=== PATIENT | female | born 1955 | race Caucasian/White ===

== ENCOUNTER 2017-09-02 10:11 | Inpatient (IN) | payer BC ==
[2017-09-02] MEDS ORDERED: FLU Vacc QS 2017-18 (36mos UP)/PF 60 MCG/0.5 ML Syringe IM ONE (11:00)
[2017-09-02] MEDS ORDERED: Temazepam 15 MG Cap PO PRN (11:08)
[2017-09-02] MEDS ORDERED: Acetaminophen 325 MG Tab PO PRN (11:08)
[2017-09-02] MEDS ORDERED: Docusate Sodium 100 MG Cap PO PRN (11:08)
[2017-09-02] MEDS ORDERED: Ondansetron 4 MG/2 ML SDV IV PRN (11:08)
[2017-09-02] MEDS ORDERED: Sodium Chloride 0.9% 10 ML Syringe FLUSH PRN (11:08)
[2017-09-02] MEDS ORDERED: Morphine 2 MG/ML Syringe IVPUSH PRN (11:08)
[2017-09-02] MEDS ORDERED: Polyethylene Glycol 3350 Powder 17 GM Packet PO PRN (11:08)
[2017-09-02] MEDS ORDERED: LOTEPREDNOL ETABONATE EYEBOTH PRN (11:20)
[2017-09-02] MEDS ORDERED: KETOTIFEN FUMARATE EYEBOTH PRN (11:20)
[2017-09-02] MEDS ORDERED: Calcium Carbonate 500 MG Tab.Chew PO PRN (11:22)
[2017-09-02] MEDS ORDERED: Fluconazole 100 MG Tab PO ONE (11:30)
[2017-09-02] MEDS: Levofloxacin/Dextrose 5%-Water 500 MG in Premix Bag 1 BAG IV SCH (11:49)
[2017-09-02 12:27] LABS: CHLORIDE,CL 108 mEq/L (98-106); SODIUM,NA 143 mEq/L (136-145)
[2017-09-03] MEDS: Levofloxacin/Dextrose 5%-Water 500 MG in Premix Bag 1 BAG IV SCH (07:58)
[2017-09-03] MEDS: Cholecalciferol (Vitamin D3) 1,000 Unit Tab PO SCH (07:59)
[2017-09-03] MEDS: Multivitamin Tab PO SCH (07:59)
[2017-09-03] MEDS: Calcium Carbonate/Vitamin D3 1250 MG-200 Unit Tab PO SCH (07:59)
--- NOTE | 2017-09-03 08:36 | PCM.PN ---
- General Info Date of Service: 09/03/17 Admission Dx/Problem (Free Text): Patient was admitted yesterday for an infection in her right cheek. She is on IV antibiotics, has a history of srojens syndrome. Functional Status: Reports: Pain Controlled, Tolerating Diet, Ambulating, Urinating. Denies: New Symptoms - Review of Systems General: Reports: No Symptoms HEENT: Reports: Post Nasal Drip, Sinus Congestion, Rhinitis Pulmonary: Reports: Cough, Sputum. Denies: Shortness of Breath, Wheezing Cardiovascular: Denies: Chest Pain, Palpitations, Dyspnea on Exertion Gastrointestinal: Reports: No Symptoms Genitourinary: Reports: No Symptoms Musculoskeletal: Reports: No Symptoms Skin: Reports: No Symptoms Neurological: Reports: No Symptoms Psychiatric: Reports: No Symptoms - Patient Data Vitals - Most Recent: Last Vital Signs Temp 36.2 C 09/03/17 08:00 Pulse 64 09/03/17 08:00 Resp 20 09/03/17 08:00 BP 132/54 L 09/03/17 08:00 Pulse Ox 99 09/03/17 08:00 Weight - Most Recent: 52.6 kg Lab Results Last 24 Hours: Laboratory Results - last 24 hr 09/02/17 09/02/17 Range/Units 11:08 11:08 WBC 7.9 (5.0-10.0) 10^3/uL RBC 4.53 (4.00-5.50) 10^6/uL Hgb 13.1 (12.0-16.0) g/dL Hct 40.3 (37.0-47.0) % MCV 89.0 (82.0-94.0) fL MCH 28.9 (27.0-32.0) pg MCHC 32.5 L (33.0-38.0) g/dL RDW Coeff of Karely 13.9 (11.0-15.0) % Plt Count 185 (150-400) 10^3/uL Neut % (Auto) 76.8 (35-85) % Lymph % (Auto) 14.7 (10-55) % Grant % (Auto) 6.0 (0-16) % Eos % (Auto) 2.2 (0-5) % Baso % (Auto) 0.3 (0-3) % Neut # (Auto) 6.07 (1.80-7.00) 10^3/uL Lymph # (Auto) 1.16 (1.00-4.80) 10^3/uL Grant # (Auto) 0.47 (0.00-0.80) 10^3/uL Eos # (Auto) 0.17 (0.00-0.45) 10^3/uL Baso # (Auto) 0.02 10^3/uL Sodium 143 (136-145) mEq/L Potassium 4.2 (3.5-5.0) mEq/L Chloride 108 H (98-106) mEq/L Carbon Dioxide 26 (21-32) mmol/L BUN 9 (7-18) mg/dL Creatinine 0.7 (0.6-1.0) mg/dL Est Cr Clr Drug Dosing 68.31 mL/min Estimated GFR (MDRD) > 60 (>=60) mL/min Glucose 92 (75-99) mg/dL Calcium 8.9 (8.4-10.1) mg/dL C-Reactive Protein 0.7 (0.2-0.8) mg/dL Servando Results Last 24 Hours: Microbiology 09/02/17 11:23 Wet Prep - Final Vagina Med Orders - Current: Current Medications Acetaminophen (Tylenol) 650 mg PO Q4H PRN PRN Reason: Pain (Mild 1-3)/fever Calcium Carbonate (Calcium Carbonate/Vitamin D 1250 Mg-200 Unit) 1 tab PO DAILY [facility] Last Admin: 09/03/17 07:59 Dose: 1 tab Calcium Carbonate/Glycine (Tums) 500 mg PO QID PRN PRN Reason: Dyspepsia Cholecalciferol (Vitamin D3) 1,000 units PO DAILY [facility] Last Admin: 09/03/17 07:59 Dose: 1,000 units Docusate Sodium (Colace) 100 mg PO BID PRN PRN Reason: Constipation Fluconazole (Diflucan) 150 mg PO ONETIME ONE Stop: 09/05/17 08:01 Levofloxacin/Dextrose 500 mg/ (Premix) 100 mls @ 100 mls/hr IV Q24H [facility] Last Admin: 09/03/17 07:58 Dose: 100 mls/hr Vancomycin HCl 750 mg/ Sodium (Chloride) 250 mls @ 166.667 mls/hr IV Q24H [facility] Last Admin: 09/02/17 14:36 Dose: 166.667 mls/hr Magnesium Oxide (Magnesium Oxide) 250 mg PO DAILY [facility] Last Admin: 09/03/17 07:59 Dose: 250 mg Morphine Sulfate (Morphine) 2 mg IVPUSH Q2H PRN PRN Reason: Pain (severe 7-10) Multivitamins/Minerals/Vitamin C (Tab-A-Irineo) 1 tab PO DAILY [facility] Last Admin: 09/03/17 07:59 Dose: 1 tab Ptom(Ketotifen Fumarate [Zaditor] 1 Drop) 1 drop EYEBOTH BID PRN PRN Reason: Allergies Ptom(Loteprednol Etabonate [Lotemax] 1 Drop) 1 drop EYEBOTH QID PRN PRN Reason: Allergies Ondansetron HCl (Zofran) 4 mg IV Q6H PRN PRN Reason: Nausea/Vomiting Polyethylene Glycol (Miralax) 17 gm PO DAILY PRN PRN Reason: Constipation Sodium Chloride (Saline Flush) 10 ml FLUSH ASDIRECTED PRN PRN Reason: Keep Vein Open Temazepam (Restoril) 15 mg PO BEDTIME PRN PRN Reason: Sleep Vancomycin HCl (Pharmacy To Dose - Vancomycin) 1 dose .XX ASDIRECTED [facility] Discontinued Medications Fluconazole (Diflucan) 150 mg PO ONETIME ONE Stop: 09/02/17 11:31 Last Admin: 09/02/17 11:51 Dose: 150 mg Influenza Virus Vaccine (Fluzone Quad [id number]) 60 mcg IM .ONCE ONE Stop: 09/02/17 11:01 Last Admin: 09/02/17 11:54 Dose: 60 mcg - Exam General: Alert, Oriented HEENT: Pupils Equal, Pupils Reactive, EOMI, Other (mild tenderness over area of ropy nodularity tragus area anterior to right ear. Oral mucous membranes with much less purulent blisters noted in right buccal mucosa compared to yesterday. No cervical LAD noted.) Neck: Supple Lungs: Clear to Auscultation, Normal Respiratory Effort Cardiovascular: Regular Rate, Regular Rhythm GI/Abdominal Exam: Normal Bowel Sounds, Soft, Non-Tender, No Organomegaly (Female) Exam: Deferred Back Exam: Normal Inspection, Full Range of Motion Extremities: Normal Inspection, Normal Range of Motion, Non-Tender, No Pedal Edema, Normal Capillary Refill Skin: Warm, Dry, Intact Neurological: No New Focal Deficit Psy/Mental Status: Alert, Normal Affect, Normal Mood - Problem List & Annotations (1) Oral infection SNOMED Code(s): 415014393 Code(s): K12.2 - CELLULITIS AND ABSCESS OF MOUTH Status: Acute Priority: High Current Visit: Yes Onset Date: ~09/02/17 - Problem List Review Problem List Initiated/Reviewed/Updated: Yes - Assessment Assessment:: Oral infection of buccal mucosa, history of srojens syndrome - Plan Plan:: Continue with IV antibiotics and treatment already initiated. Patient feels modestly better this morning with less purulent pockets noted in the oral area right buccal mucosa. Discharge when appropriate.
[2017-09-04] MEDS: Cholecalciferol (Vitamin D3) 1,000 Unit Tab PO SCH (08:31)
[2017-09-04] MEDS: Multivitamin Tab PO SCH (08:31)
[2017-09-04] MEDS: Calcium Carbonate/Vitamin D3 1250 MG-200 Unit Tab PO SCH (08:31)
[2017-09-04] MEDS: Levofloxacin/Dextrose 5%-Water 500 MG in Premix Bag 1 BAG IV SCH (08:32)
[2017-09-04] MEDS ORDERED: Fluconazole 100 MG Tab PO ONE (11:13)
--- NOTE | 2017-09-04 12:52 | PCM.PN ---
- General Info Date of Service: 09/04/17 Admission Dx/Problem (Free Text): Patient was admitted yesterday for an infection in her right cheek. She is on IV antibiotics, has a history of srojens syndrome. Functional Status: Reports: Pain Controlled, Tolerating Diet, Ambulating, New Symptoms (burning with urination and frequency) - Review of Systems General: Reports: No Symptoms HEENT: Reports: Other (right cheek nodularity is getting less tender and smaller , she is still able to milk pus out throught the opening in the buccal mocosa of right cheek inside mouth. This has been cultured and is pending. Patient c/ o dry eyes and is using eye drops. Eyelids are dry and sore consistent with ususal symptoms when srojens is acting up.) Pulmonary: Reports: No Symptoms Cardiovascular: Reports: No Symptoms Gastrointestinal: Reports: No Symptoms Genitourinary: Reports: Dysuria, Frequency. Denies: Incontinence, Hematuria Musculoskeletal: Reports: No Symptoms Skin: Reports: No Symptoms Neurological: Reports: No Symptoms Psychiatric: Reports: No Symptoms - Patient Data Vitals - Most Recent: Last Vital Signs Temp 36.0 C 09/04/17 08:00 Pulse 70 09/04/17 08:00 Resp 20 09/04/17 08:00 BP 115/70 09/04/17 08:00 Pulse Ox 98 09/04/17 08:00 Weight - Most Recent: 52.6 kg Servando Results Last 24 Hours: Microbiology 09/02/17 11:23 Throat Culture - Final Throat 09/02/17 11:23 Genital Culture - Final Vagina 09/02/17 13:06 MRSA Culture - Final Nose, Unspecified NO MRSA ISOLATED Med Orders - Current: Current Medications Acetaminophen (Tylenol) 650 mg PO Q4H PRN PRN Reason: Pain (Mild 1-3)/fever Calcium Carbonate (Calcium Carbonate/Vitamin D 1250 Mg-200 Unit) 1 tab PO DAILY [facility] Last Admin: 09/04/17 08:31 Dose: 1 tab Calcium Carbonate/Glycine (Tums) 500 mg PO QID PRN PRN Reason: Dyspepsia Cholecalciferol (Vitamin D3) 1,000 units PO DAILY [facility] Last Admin: 09/04/17 08:31 Dose: 1,000 units Docusate Sodium (Colace) 100 mg PO BID PRN PRN Reason: Constipation Last Admin: 09/04/17 11:28 Dose: 100 mg Levofloxacin/Dextrose 500 mg/ (Premix) 100 mls @ 100 mls/hr IV Q24H [facility] Last Admin: 09/04/17 08:32 Dose: 100 mls/hr Vancomycin HCl 750 mg/ Sodium (Chloride) 250 mls @ 166.667 mls/hr IV Q24H [facility] Last Admin: 09/04/17 12:35 Dose: 166.667 mls/hr Magnesium Oxide (Magnesium Oxide) 250 mg PO DAILY [facility] Last Admin: 09/04/17 08:31 Dose: 250 mg Morphine Sulfate (Morphine) 2 mg IVPUSH Q2H PRN PRN Reason: Pain (severe 7-10) Multivitamins/Minerals/Vitamin C (Tab-A-Irineo) 1 tab PO DAILY [facility] Last Admin: 09/04/17 08:31 Dose: 1 tab Ptom(Ketotifen Fumarate [Zaditor] 1 Drop) 1 drop EYEBOTH BID PRN PRN Reason: Allergies Ptom(Loteprednol Etabonate [Lotemax] 1 Drop) 1 drop EYEBOTH QID PRN PRN Reason: Allergies Ondansetron HCl (Zofran) 4 mg IV Q6H PRN PRN Reason: Nausea/Vomiting Polyethylene Glycol (Miralax) 17 gm PO DAILY PRN PRN Reason: Constipation Sodium Chloride (Saline Flush) 10 ml FLUSH ASDIRECTED PRN PRN Reason: Keep Vein Open Temazepam (Restoril) 15 mg PO BEDTIME PRN PRN Reason: Sleep Vancomycin HCl (Pharmacy To Dose - Vancomycin) 1 dose .XX ASDIRECTED [facility] Discontinued Medications Fluconazole (Diflucan) 150 mg PO ONETIME ONE Stop: 09/05/17 08:01 Fluconazole (Diflucan) 150 mg PO ONETIME ONE Stop: 09/02/17 11:31 Last Admin: 09/02/17 11:51 Dose: 150 mg Fluconazole (Diflucan) 150 mg PO ONETIME ONE Stop: 09/04/17 11:14 Last Admin: 09/04/17 11:26 Dose: 150 mg Influenza Virus Vaccine (Fluzone Quad [id number]) 60 mcg IM .ONCE ONE Stop: 09/02/17 11:01 Last Admin: 09/02/17 11:54 Dose: 60 mcg - Exam General: Alert, Oriented HEENT: Pupils Equal, Pupils Reactive, EOMI, Other (small pus filled pockets in right cheek buccal mucosa in the mouth have resolved. Area of palpable nodularity on the left cheek in the tragus area is less tender and smaller. Patient is still able to express small amount of pus from the opening inside the right cheek on the buccal mucosa but reports less than yesterday.) Neck: Supple Lungs: Clear to Auscultation, Normal Respiratory Effort Cardiovascular: Regular Rate, Regular Rhythm GI/Abdominal Exam: Normal Bowel Sounds, Soft, Non-Tender, No Organomegaly, No Distention (Female) Exam: Normal External Exam (Patient vaginal area examined to make sure there is no external redness or discharge suggestive of a yeast infection.) , Deferred Back Exam: Normal Inspection, Full Range of Motion Extremities: Normal Inspection, Normal Range of Motion, Non-Tender, No Pedal Edema, Normal Capillary Refill Peripheral Pulses: 2+: Radial (L), Radial (R), Dorsalis Pedis (L), Dorsalis Pedis (R) Skin: Warm, Dry, Intact Neurological: No New Focal Deficit Psy/Mental Status: Alert, Normal Affect, Normal Mood - Problem List & Annotations (1) Oral infection SNOMED Code(s): 335191741 Code(s): K12.2 - CELLULITIS AND ABSCESS OF MOUTH Status: Acute Priority: High Current Visit: Yes Onset Date: ~09/02/17 - Problem List Review Problem List Initiated/Reviewed/Updated: Yes - My Orders Last 24 Hours: My Active Orders 09/04/17 11:20 URINALYSIS W/MICROSCOPIC [UA W/MICROSCOPIC] [URIN] Routine - Assessment Assessment:: Oral infection of buccal mucosa, history of srojens syndrome - Plan Plan:: Continue with IV antibiotics and treatment already initiated. Patient feels modestly better this morning with less purulent pockets noted in the oral area right buccal mucosa. Will obtain a UA though if she does have a UTI it should be covered with vancomycin and levaquin. Will give another dose of diflucan today and add in yogurt to her diet. This was all discussed in detail with patient and she voiced understnding. Several cultures are pending. Discharge when appropriate.
[2017-09-05] MEDS: Levofloxacin/Dextrose 5%-Water 500 MG in Premix Bag 1 BAG IV SCH (07:02)
[2017-09-05 07:31] VITALS: BP 126/72
[2017-09-05] MEDS ORDERED: Fluconazole 100 MG Tab PO ONE (08:00)
[2017-09-05] MEDS: Calcium Carbonate/Vitamin D3 1250 MG-200 Unit Tab PO SCH (08:22)
[2017-09-05] MEDS: Multivitamin Tab PO SCH (08:22)
[2017-09-05] MEDS: Cholecalciferol (Vitamin D3) 1,000 Unit Tab PO SCH (08:22)
--- NOTE | 2017-09-05 15:03 | PCM.PN ---
- General Info Date of Service: 09/05/17 Admission Dx/Problem (Free Text): Patient was admitted yesterday for an infection in her right cheek. She is on IV antibiotics, has a history of srojens syndrome. Patient has responded well to IV antibiotics of levaquin and vancomycin. All cultures done have come back with significant bacterial issues. Oral culture showed normal abner. No MRSA in nasal or vaginal culture. Urine shows no UTI. Patient is still able to express small amount of fluid from nodule in right tragus area but it observed by myself this morning to be clear in nature as opposed to cloudy yesterday and the day before. The swelling and pain in the area of ropy nodularity right tragus are is significantly improved from admission. ROS negative today for fever, chills, SOB, chest pain nausea or any other major issues. On exam, patient is afebrile, heart RRR. Lungs CTA. Skin PWD. AFVSS Functional Status: Reports: Pain Controlled, Tolerating Diet, Ambulating, Urinating. Denies: New Symptoms - Review of Systems General: Reports: No Symptoms HEENT: Reports: No Symptoms, Other (see note above) Pulmonary: Reports: No Symptoms Cardiovascular: Reports: No Symptoms Gastrointestinal: Reports: No Symptoms Genitourinary: Reports: Dysuria, Frequency (recent UA was clear) Musculoskeletal: Reports: No Symptoms Skin: Reports: No Symptoms Neurological: Reports: No Symptoms Psychiatric: Reports: No Symptoms - Patient Data Vitals - Most Recent: Last Vital Signs Temp 35.5 C 09/05/17 07:30 Pulse 66 09/05/17 07:30 Resp 18 09/05/17 07:30 BP 126/72 09/05/17 07:30 Pulse Ox 100 09/05/17 07:30 Weight - Most Recent: 52.6 kg I&O - Last 24 Hours: Intake & Output 09/04/17 09/05/17 09/05/17 22:59 06:59 14:59 Intake Total 200 Balance 200 Lab Results Last 24 Hours: Laboratory Results - last 24 hr 09/04/17 Range/Units 11:20 Urine Color Yellow (YELLOW) Urine Appearance Clear (CLEAR) Urine pH 7.0 (4.5-8.0) Ur Specific [place] 1.015 (1.003-1.020) Urine Protein Negative (NEGATIVE) mg/dL Urine Glucose (UA) Negative (NEGATIVE) mg/dL Urine Ketones Negative (NEGATIVE) mg/dL Urine Occult Blood Negative (NEGATIVE) Urine Nitrite Negative (NEGATIVE) Urine Bilirubin Negative (NEGATIVE) Urine Urobilinogen 0.2 (0.2-1.0) EU/dL Ur Leukocyte Esterase Negative (NEGATIVE) Urine RBC Not seen (0-5) /HPF Urine WBC Not seen (0-5) /HPF Ur Squamous Epith Cells Occasional H (NOT SEEN) /HPF Urine Bacteria Occasional H (NOT SEEN) /HPF Med Orders - Current: Current Medications Discontinued Medications Acetaminophen (Tylenol) 650 mg PO Q4H PRN PRN Reason: Pain (Mild 1-3)/fever Calcium Carbonate (Calcium Carbonate/Vitamin D 1250 Mg-200 Unit) 1 tab PO DAILY [facility] Last Admin: 09/05/17 08:22 Dose: 1 tab Calcium Carbonate/Glycine (Tums) 500 mg PO QID PRN PRN Reason: Dyspepsia Cholecalciferol (Vitamin D3) 1,000 units PO DAILY [facility] Last Admin: 09/05/17 08:22 Dose: 1,000 units Docusate Sodium (Colace) 100 mg PO BID PRN PRN Reason: Constipation Last Admin: 09/04/17 11:28 Dose: 100 mg Fluconazole (Diflucan) 150 mg PO ONETIME ONE Stop: 09/05/17 08:01 Fluconazole (Diflucan) 150 mg PO ONETIME ONE Stop: 09/02/17 11:31 Last Admin: 09/02/17 11:51 Dose: 150 mg Fluconazole (Diflucan) 150 mg PO ONETIME ONE Stop: 09/04/17 11:14 Last Admin: 09/04/17 11:26 Dose: 150 mg Levofloxacin/Dextrose 500 mg/ (Premix) 100 mls @ 100 mls/hr IV Q24H [facility] Last Admin: 09/05/17 07:02 Dose: 100 mls/hr Vancomycin HCl 750 mg/ Sodium (Chloride) 250 mls @ 166.667 mls/hr IV Q24H [facility] Last Admin: 09/05/17 12:09 Dose: Not Given Influenza Virus Vaccine (Fluzone Quad [id number]) 60 mcg IM .ONCE ONE Stop: 09/02/17 11:01 Last Admin: 09/02/17 11:54 Dose: 60 mcg Magnesium Oxide (Magnesium Oxide) 250 mg PO DAILY [facility] Last Admin: 09/05/17 08:22 Dose: 250 mg Morphine Sulfate (Morphine) 2 mg IVPUSH Q2H PRN PRN Reason: Pain (severe 7-10) Multivitamins/Minerals/Vitamin C (Tab-A-Irineo) 1 tab PO DAILY [facility] Last Admin: 09/05/17 08:22 Dose: 1 tab Ptom(Ketotifen Fumarate [Zaditor] 1 Drop) 1 drop EYEBOTH BID PRN PRN Reason: Allergies Ptom(Loteprednol Etabonate [Lotemax] 1 Drop) 1 drop EYEBOTH QID PRN PRN Reason: Allergies Ondansetron HCl (Zofran) 4 mg IV Q6H PRN PRN Reason: Nausea/Vomiting Polyethylene Glycol (Miralax) 17 gm PO DAILY PRN PRN Reason: Constipation Sodium Chloride (Saline Flush) 10 ml FLUSH ASDIRECTED PRN PRN Reason: Keep Vein Open Temazepam (Restoril) 15 mg PO BEDTIME PRN PRN Reason: Sleep Vancomycin HCl (Pharmacy To Dose - Vancomycin) 1 dose .XX ASDIRECTED [facility] - Exam General: Alert, Oriented HEENT: Pupils Equal, Pupils Reactive, EOMI, Mucous Membr. Moist/[place] (patient can express small amount of clear fluid from right buccal mucosa instead of cloudy fluid as noted the prior two days.) Neck: Supple Lungs: Clear to Auscultation, Normal Respiratory Effort Cardiovascular: Regular Rate, Regular Rhythm GI/Abdominal Exam: Normal Bowel Sounds, Soft, Non-Tender, No Organomegaly, No Distention, No Abnormal Bruit, No Mass, Pelvis Stable (Female) Exam: Deferred Back Exam: Normal Inspection, Full Range of Motion Extremities: Normal Inspection, Normal Range of Motion, Non-Tender, No Pedal Edema, Normal Capillary Refill Skin: Warm, Dry, Intact Neurological: No New Focal Deficit Psy/Mental Status: Alert, Normal Affect, Normal Mood - Problem List & Annotations (1) Oral infection SNOMED Code(s): 669745308 Code(s): K12.2 - CELLULITIS AND ABSCESS OF MOUTH Status: Acute Priority: High Onset Date: ~09/02/17 - Problem List Review Problem List Initiated/Reviewed/Updated: Yes - My Orders Last 24 Hours: My Active Orders 09/05/17 11:24 Ready for Discharge [RC] PER UNIT ROUTINE - Assessment Assessment:: Oral infection of buccal mucosa, history of srojens syndrome - Plan Plan:: Patient has improved substantially is requesting to go home. The pain and discharge in her right cheek buccal mucosa has improved significantly. The cultures grew out nothing worrisome. She will be discharged home on Two oral antibiotics and antifungals with follow up advised in two days time with her regular provider.
== END 2017-09-05 12:26 | disposition home or self-care (01) | DRG 383 ==
LOC: UNDOADMIN 10:11 → CC.MS 10:11
PROVIDERS: ADMIT Nurse Practitioner Family; ATTEND General Practice
DX: L03.213 Periorbital cellulitis (principal); K11.20 Sialoadenitis, unspecified; B37.3 Candidiasis of vulva and vagina; Z88.1 Allergy status to other antibiotic agents; Z88.8 Allergy status to other drugs, medicaments and biological substances
CPT/HCPCS: 36415; 80048; 81001; 85025; 86140; 87070; 87210; 90686; A9270-GY; G0008; J1956; J3370; J7050

== ENCOUNTER → 2019-04-20 | Day surgery (SDC) | payer BC ==
[~2019-04-20] MED LIST: Lactated Ringers 1,000 ML IV SCH; Propofol 200 MG/20 ML SDV IV ONE
[2019-04-20 13:02] VITALS: BP 121/53
--- NOTE | 2019-04-23 09:10 | OR ---
DATE OF OPERATION: 04/20/2019 PREOPERATIVE DIAGNOSIS: 1. EPIGASTRIC PAIN. 2. DYSPEPSIA. POSTOPERATIVE DIAGNOSIS: MODERATE ACTIVE GASTRITIS/DUODENITIS. SURGEON: Iván Neumann MD PROCEDURE: DIAGNOSTIC ESOPHAGOGASTRODUODENOSCOPY WITH BIOPSIES X5, HANS. ANESTHESIA: MAC via [employer]. COMPLICATIONS: None. SPECIMEN: 1. Duodenal bulb biopsy x1. 2. Antral biopsy x2. 3. Fundal biopsy x2. 4. HANS. FINDINGS: 1. Full-length EGD. 2. Active and moderate gastritis/duodenitis of the duodenal bulb. RECOMMENDATIONS: The patient will be placed on proton pump therapy and Carafate. She will have close followup with her primary provider, Sherly Meyer. INDICATIONS: The patient has been having some epigastric pain and dyspepsia. She has a history of gastric ulcers. The patient's provider apparently did a gallbladder ultrasound which was negative. She elects to proceed with EGD. DESCRIPTION OF PROCEDURE: The patient was prepped and draped, placed in left lateral decubitus position. A lubricated Olympus gastroscope was inserted over a bit and advanced to cricopharyngeus area and easily intubated into the esophagus. The esophageal lining was benign in its entire course. The Z-line was crisp and sharp at 40 cm. There was no spontaneous reflux. No distal esophagitis, stricturing, ulceration, or Dugan's changes. The scope advanced easily into the stomach through the pylorus into the second portion of the duodenum. This was benign. The duodenal bulb had active duodenitis without any erosion or ulceration. Biopsy of the duodenal bulb was taken. The scope was brought back into the stomach and retroflexed. The upper fundus and cardia were grossly benign. The patient upon straightening has diffuse gastritis from most of the fundus down through to the pyloric channel, active and moderate in severity. There was 1 small erosion in the fundus, but otherwise no gross ulcerations were seen. We did 2 biopsies of the fundus, 2 of the antrum along with a CLOtest. Air was then suctioned from the stomach and scope removed without complication. DORIS/DHAVAL /[id number]
== END ==
LOC: CC.SDS 11:14
PROVIDERS: ATTEND Family Medicine
DX: K29.50 Unspecified chronic gastritis without bleeding (principal); K25.9 Gastric ulcer, unspecified as acute or chronic, without hemorrhage or perforation; K29.80 Duodenitis without bleeding; E78.5 Hyperlipidemia, unspecified; E55.9 Vitamin D deficiency, unspecified; F41.8 Other specified anxiety disorders; H10.9 Unspecified conjunctivitis; Z88.1 Allergy status to other antibiotic agents; Z88.8 Allergy status to other drugs, medicaments and biological substances; Z79.899 Other long term (current) drug therapy
CPT/HCPCS: 87081; J2704; J7120

== ENCOUNTER → 2020-08-08 | Day surgery (SDC) | payer MEDICARE, BC ==
[2020-08-08 10:18] VITALS: PULSE 60
[2020-08-08 10:43] VITALS: BP 124/57
--- NOTE | 2020-08-10 13:29 | OR ---
DATE OF OPERATION: 08/08/2020 PREOPERATIVE DIAGNOSIS: ABDOMINAL PAIN AND BLOATING. POSTOPERATIVE DIAGNOSIS: ABDOMINAL PAIN AND BLOATING. SURGEON: Iván Neumann MD PROCEDURE: 1. DIAGNOSTIC EGD WITH BIOPSIES X2, HANS. 2. FULL-LENGTH COLONOSCOPY. ANESTHESIA: MAC. COMPLICATIONS: None. SPECIMEN: 1. Antral biopsy x2. 2. Antral HANS. FINDINGS: 1. Full-length EGD. 2. Diffuse chronic gastritis. 3. Normal full-length colonoscopy. RECOMMENDATIONS: The patient is proceeding with HIDA scan to evaluate her bloating and right upper quadrant pain. INDICATIONS: The patient has been having some ongoing issues with abdominal bloating, right upper quadrant pain. She has known history of peptic ulcer disease. She is overdue for colonoscopy. We elected to proceed with both upper and lower scopes. DESCRIPTION OF PROCEDURE: The patient was prepped and draped, placed in the left lateral decubitus position. A lubricated Olympus gastroscope was inserted over a bit, advanced to the cricopharyngeus area, and easily intubated into the esophagus. The esophageal lining was benign in its entire course. The Z-line was crisp and sharp at 40 cm. No significant reflux seen. There was no distal esophagitis, stricturing, ulceration, or Dugan's changes. The scope was advanced into the stomach, through the pylorus, and into the second portion of the duodenum. This and the duodenal bulb were benign. The scope was brought back into the stomach and retroflexed. The upper fundus and cardia were essentially benign. The patient has diffuse gastritis chronic in appearance from the mid to distal portion of the fundus through to the pylorus. We did do 2 biopsies of the most significantly affected part of the antrum along with a CLOtest. No other masses, lesions, or polyps were seen. Air was suctioned. The scope was removed without complication. A lubricated Olympus colonoscope then inserted and with ease advanced to the cecum. Direct visualization of the ileocecal valve and appendiceal orifice was accomplished. The bowel prep was excellent. Upon withdrawal of the scope, throughout the entire length of the colon, I could find no signs of any polyps, masses, ulceration, or bleeding sites. No vascular abnormalities or signs of colitis. No diverticula. Retroflexion of the scope in the rectum showed no anal lesions. Air was then suctioned and scope removed without complication. DORIS/DHAVAL /[id number]
== END ==
LOC: CC.SDS 08:45
PROVIDERS: ATTEND Family Medicine
DX: R10.11 Right upper quadrant pain (principal); R14.0 Abdominal distension (gaseous); K29.50 Unspecified chronic gastritis without bleeding; F41.8 Other specified anxiety disorders; K21.9 Gastro-esophageal reflux disease without esophagitis; E78.00 Pure hypercholesterolemia, unspecified; Z88.8 Allergy status to other drugs, medicaments and biological substances; Z79.899 Other long term (current) drug therapy; Z90.49 Acquired absence of other specified parts of digestive tract
CPT/HCPCS: 00813; 43239; 45378; 87081; 88305; 88342; J2704; J7120

== ENCOUNTER 2024-06-29 09:05 | Day surgery (SDC) | payer MEDICARE ==
[2024-06-29] MEDS: Lactated Ringers 1,000 ML IV SCH (09:28)
[2024-06-29] MEDS ORDERED: Propofol 200 MG/20 ML SDV ONE (09:55)
[2024-06-29] MEDS ORDERED: fentaNYL 50 MCG/ML SDV ONE (09:55)
[2024-06-29] MEDS ORDERED: Lidocaine 2% 20 ML MDV ONE (09:55)
[2024-06-29] MEDS ORDERED: Ondansetron 4 MG/2 ML SDV ONE (09:55)
[2024-06-29] MEDS ORDERED: Ketamine 200 MG/20 ML MDV ONE (09:55)
[2024-06-29] MEDS ORDERED: ePHEDrine 50 MG/ML SDV ONE (09:55)
[2024-06-29 11:12] VITALS: BP 117/55; PULSE 58
== END 2024-06-29 11:05 | disposition home or self-care (01) ==
LOC: CC.SDS 09:05
PROVIDERS: ATTEND Family Medicine
DX: K29.50 Unspecified chronic gastritis without bleeding (principal); F41.8 Other specified anxiety disorders; K21.9 Gastro-esophageal reflux disease without esophagitis; E78.00 Pure hypercholesterolemia, unspecified; Z79.899 Other long term (current) drug therapy; Z88.5 Allergy status to narcotic agent; Z88.8 Allergy status to other drugs, medicaments and biological substances; Z88.2 Allergy status to sulfonamides
CPT/HCPCS: 00731; 43239; 87081; J2405; J2704; J3010; J7120; 88305; 88342; J3490